=== PATIENT | male | born 1960 | race Caucasian/White ===

== ENCOUNTER 2018-07-10 18:14 | Emergency (ER) | payer MEDICARE, MEDICAID ==
[~2018-07-10] VITALS: Ht 182.9 cm; Wt 83.9 kg
[2018-07-10] MEDS ORDERED: RISP3TAB5 PO (18:30)
[2018-07-10] MEDS ORDERED: ATOR20TA PO (18:30)
[2018-07-10] MEDS ORDERED: DUTA0.5C PO (18:30)
[2018-07-10] MEDS ORDERED: ASPI81TA31 PO (18:30)
[2018-07-10] MEDS ORDERED: ESCI5TAB PO (18:30)
[2018-07-10] MEDS ORDERED: GABA-534 PO (18:30)
--- NOTE | 2018-07-10 18:55 | NUR ---
PT IS IN ROOM #2A. DR PIÑA EVALUATED THE PT.
--- NOTE | 2018-07-10 19:11 | NUR ---
PT WAS D/C'd TO HOME. D/C INSTRUCTIONS GIVEN TO THE PT AND TO HIS JOSEPHHTER.
[2018-07-10 19:12] VITALS: BP 132/81
== END 2018-07-10 19:13 | disposition home or self-care (01) ==
LOC: ER 18:16
DX: L25.9 Unspecified contact dermatitis, unspecified cause (principal); E78.5 Hyperlipidemia, unspecified; Z79.82 Long term (current) use of aspirin; Z79.899 Other long term (current) drug therapy
CPT/HCPCS: A4663